=== PATIENT | female | born 1960 | race Caucasian/White ===

== ENCOUNTER 2017-07-24 02:11 | Emergency (ER) | payer OTHER ==
[~2017-07-24] VITALS: Ht 157.5 cm; Wt 81.0 kg
[~2017-07-24 02:11] MED LIST: IBUPROFEN
[2017-07-24] MEDS ORDERED: HYDROCODONE/ACETAMINOPHEN 5/325MG TABLET PO ONE (04:15)
[2017-07-24] MEDS ORDERED: ACYCLOVIR 400 MG TABLET PO ONE (04:15)
[2017-07-24 05:30] VITALS: BP 132/68
== END 2017-07-24 06:12 | disposition home or self-care (01) ==
LOC: ER 02:11
DX: B02.9 Zoster without complications (principal); I10 Essential (primary) hypertension
CPT/HCPCS: 99283